=== PATIENT | female | born 1950 | race Caucasian/White ===

== ENCOUNTER 2018-02-25 16:27 | Observation (INO) ==
[2018-02-25 16:56] LABS: Basophils # 0.1 K/mcL (0.0-0.2); Basophils % 0.7 %; Eosinophils # 0.2 K/mcL (0.0-0.6); Hematocrit 41.7 % (35.3-44.9); Hemoglobin 13.8 g/dL (11.5-15.4); Immature Granulocytes % 0.2 % (0-4); Lymphocytes # 4.3 K/mcL (0.6-4.6); Lymphocytes % 35.5 %; Mean Corpuscular HGB Conc 33.1 g/dL (31.6-35.5); Mean Corpuscular Hemoglobin 28.4 pg (28.0-33.3); Mean Corpuscular Volume 85.8 fL (83.0-100.0); Mean Platelet Volume 9.4 fL (9.4-12.4); Monocytes # 1.1 K/mcL (0.0-1.3); Neutrophils # 6.3 K/mcL (1.6-8.9); Platelet Count 368 K/mcL (140-400); Red Blood Count 4.86 M/mcL (3.82-4.97); Red Cell Distribution Width 12.9 % (11.5-14.5); Segmented Neutrophils % 52.6 %
--- NOTE | 2018-02-25 17:00 | Emergency Department Note ---
Disposition Clinical Impression: Vision changes, TIA (transient ischemic attack) Disposition: Admitted As Inpatient Condition: Good General Adult HPI - General Chief complaint: ED Neuro Symptoms/Deficit Stated complaint: "head feels tight, pain down neck,vision changes" Time Seen by Provider: 02/25/18 16:42 Source: patient Limitations: no limitations Nursing Notes Reviewed: Yes Vital Signs Reviewed: Yes - History of Present Illness Pain Scale: 4 - Related Data Home Medications Medication Instructions Recorded Confirmed Cholecalciferol (D-3) [Vitamin D] 2,000 unit PO DAILY 02/25/18 02/25/18 Levothyroxine Sodium [Levoxyl] 75 mcg PO DAILY 02/25/18 02/25/18 Allergies Allergy/AdvReac Type Severity Reaction Status Date / Time Penicillins [PCN] AdvReac Rash Verified 01/19/17 12:14 sulfamethoxazole AdvReac Nausea Verified 01/19/17 12:14 [From Bactrim] trimethoprim [From Bactrim] AdvReac Nausea Verified 01/19/17 12:14 Past Medical History - Past Medical History Medical history: Reports: no medical history Surgical history: Reports: cholecystectomy, hysterectomy, orthopedic, other Psychiatric history: Reports: no psych history PERFORATOR LOADER history: Reports: no PERFORATOR LOADER history - Social History Smoking Status: Never smoker Smokeless Tobacco Status: No Alcohol use: Reports: none Drug use: Reports: none Physical Exam - General Limitations: no limitations General appearance: alert, in no apparent distress Course Vital Signs Temperature 98.0 F 02/25/18 16:29 Pulse Rate 69 02/25/18 16:29 Respiratory Rate 18 02/25/18 16:29 Blood Pressure 155/87 02/25/18 16:29 O2 Sat by Pulse Oximetry 97 02/25/18 16:29 Temperature 98.0 F 02/25/18 16:34 Pulse Rate 69 02/25/18 16:34 Respiratory Rate 18 02/25/18 18:41 Blood Pressure 103/56 02/25/18 18:41 O2 Sat by Pulse Oximetry 97 02/25/18 16:34 Oxygen Delivery Oxygen Delivery Room Air Medical Decision Making - MDM Narrative Medical decision making narrative: This documentation is done with the assistance of Dragon dictation. Despite efforts made to ensure accuracy, there may be inaccuracies in aircraft rigging and controls mechanic or spelling and typographical errors. Patient seen today for blurring of vision some headache and some numbness going down left side of her face and tingling is down to her neck. Symptoms, come and go. She is worried she could be having a TIA. She says she does not really want to be here I prescription for to do a workup on her CT her head and will determine best disposition from then. She is in agreement this plan. She does not meet stroke Head CT 02/25/18 16:43 IMPRESSION: No acute intracranial abnormality. D/ / Kvng Crawford MD / Kvng Crawford MD Interpreting Provider: Kvng Crawford MD 1748 hrs.: Patient's a CT is negative labs look good. We will talk to her about getting an MRI versus admitted to the hospital. However MRI is at least 3 hours behind schedule due to some other emergent MRIs. Soret bringing her into the hospital. She is in agreement with plan. We will start her on aspirin and admit her. She is in agreement with plan. - Lab Data Result diagrams: 02/25/18 16:45 02/25/18 16:45 Lab Results 02/25/18 02/25/18 02/25/18 Range/Units 16:45 16:45 16:45 WBC 12.0 H (4.3-11.1) K/mcL RBC 4.86 (3.82-4.97) M/mcL Hgb 13.8 (11.5-15.4) g/dL Hct 41.7 (35.3-44.9) % MCV 85.8 (83.0-100.0) fL MCH 28.4 (28.0-33.3) pg MCHC 33.1 (31.6-35.5) g/dL RDW 12.9 (11.5-14.5) % Plt Count 368 (140-400) K/mcL MPV 9.4 (9.4-12.4) fL Immature Gran % 0.2 (0-4) % Seg Neutrophils % 52.6 % Lymphocytes % 35.5 % Monocytes % 9.0 % Eosinophils % 2.0 % Basophils % 0.7 % Neutrophils # 6.3 (1.6-8.9) K/mcL Lymphocytes # 4.3 (0.6-4.6) K/mcL Monocytes # 1.1 (0.0-1.3) K/mcL Eosinophils # 0.2 (0.0-0.6) K/mcL Basophils # 0.1 (0.0-0.2) K/mcL PT 10.4 (9.4-12.1) Seconds INR 1.0 APTT 31.5 (26.0-36.0) Seconds Sodium 139 (136-145) mEq/L Potassium 4.0 (3.5-5.1) mEq/L Chloride 105 (98-107) mEq/L Carbon Dioxide 25 (23-29) mEq/L BUN 23 (8-23) mg/dL Creatinine 0.82 (0.60-1.20) mg/dL Est GFR ( Amer) > 60 (> 60) Est GFR (Non-Af Amer) > 60 (> 60) BUN/Creatinine Ratio 28 H (6-26) Glucose 98 (70-105) mg/dL POC Glucose (70-99) mg/dL Calculated Osmolality 292 (280-300) Calcium 10.2 (8.6-10.3) mg/dL Troponin I < 0.03 (< 0.04) ng/mL Urine Color (Yellow) Urine Clarity (Clear) Urine pH (5.0-8.0) pH Units Ur Specific [place] (1.010-1.025) Urine Protein (Neg-Trace) mg/dL Urine Glucose (UA) (Normal) mg/dL Urine Ketones (Negative) mg/dL Urine Blood (Negative) Urine Nitrite (Negative) Urine Bilirubin (Negative) Urine Urobilinogen (Normal) mg/dL Ur Leukocyte Esterase (Negative) Urine Microscopic RBC (0-3) per hpf Urine Microscopic WBC (0-3) per hpf Ur Squamous Epith Cells (None-Few) per lpf Urine Bacteria (None-Few) per hpf Hyaline Casts (None-Few) per lpf Ur Culture Indicated? (NO) 02/25/18 02/25/18 Range/Units 16:58 17:32 WBC (4.3-11.1) K/mcL RBC (3.82-4.97) M/mcL Hgb (11.5-15.4) g/dL Hct (35.3-44.9) % MCV (83.0-100.0) fL MCH (28.0-33.3) pg MCHC (31.6-35.5) g/dL RDW (11.5-14.5) % Plt Count (140-400) K/mcL MPV (9.4-12.4) fL Immature Gran % (0-4) % Seg Neutrophils % % Lymphocytes % % Monocytes % % Eosinophils % % Basophils % % Neutrophils # (1.6-8.9) K/mcL Lymphocytes # (0.6-4.6) K/mcL Monocytes # (0.0-1.3) K/mcL Eosinophils # (0.0-0.6) K/mcL Basophils # (0.0-0.2) K/mcL PT (9.4-12.1) Seconds INR APTT (26.0-36.0) Seconds Sodium (136-145) mEq/L Potassium (3.5-5.1) mEq/L Chloride (98-107) mEq/L Carbon Dioxide (23-29) mEq/L BUN (8-23) mg/dL Creatinine (0.60-1.20) mg/dL Est GFR ( Amer) (> 60) Est GFR (Non-Af Amer) (> 60) BUN/Creatinine Ratio (6-26) Glucose (70-105) mg/dL POC Glucose 110 H (70-99) mg/dL Calculated Osmolality (280-300) Calcium (8.6-10.3) mg/dL Troponin I (< 0.04) ng/mL Urine Color Yellow (Yellow) Urine Clarity Clear (Clear) Urine pH 6.0 (5.0-8.0) pH Units Ur Specific [place] 1.026 H (1.010-1.025) Urine Protein Negative (Neg-Trace) mg/dL Urine Glucose (UA) Normal (Normal) mg/dL Urine Ketones Negative (Negative) mg/dL Urine Blood Negative (Negative) Urine Nitrite Negative (Negative) Urine Bilirubin Negative (Negative) Urine Urobilinogen Normal (Normal) mg/dL Ur Leukocyte Esterase Small H (Negative) Urine Microscopic RBC 0-3 (0-3) per hpf Urine Microscopic WBC 3-5 H (0-3) per hpf Ur Squamous Epith Cells Many H (None-Few) per lpf Urine Bacteria None Seen (None-Few) per hpf Hyaline Casts None Seen (None-Few) per lpf Ur Culture Indicated? NO. A (NO) Attestation Statement - Attestation Attestation: I examined this patient and my medical decision-making was reviewed with the Resident Physician. I agree with the documented findings, disposition and treatment plan as described except to the extent set forth below. Patient seen and evaluated by Dr. Dejesus and myself, grazes evaluation management plan, supervise care the patient's stay.
[2018-02-25 17:02] LABS: Prothrombin Time 10.4 Seconds (9.4-12.1)
[2018-02-25 17:04] LABS: Activated Partial Thrombo Time 31.5 Seconds (26.0-36.0)
[2018-02-25] MEDS ORDERED: Aspirin 325 MG TABLET PO ONE (17:25)
[2018-02-25 17:41] LABS: BUN/Creatinine Ratio 28 (6-26); Blood Urea Nitrogen 23 mg/dL (8-23); Calcium 10.2 mg/dL (8.6-10.3); Carbon Dioxide 25 mEq/L (23-29); Chloride 105 mEq/L (98-107); Glucose 98 mg/dL (70-105); Osmolality,Calculated 292 (280-300); Sodium 139 mEq/L (136-145); Troponin I < 0.03 ng/mL (< 0.04); eGFR For African Americans > 60 (> 60); eGFR For Non-African Americans > 60 (> 60)
[2018-02-25 17:43] LABS: Bilirubin,Urine Negative (Negative); Blood,Urine Negative (Negative); Clarity,Urine Clear (Clear); Color,Urine Yellow (Yellow); Glucose,Urine (UA) Normal (Normal); Ketones,Urine Negative (Negative); Leukocyte Esterase,Urine Small (Negative); Nitrite,Urine Negative (Negative); Protein,Urine Negative (Neg-Trace); Specific Gravity,Urine 1.026 (1.010-1.025); Urobilinogen,Urine Normal (Normal)
[2018-02-25 17:48] LABS: Bacteria,Urine None Seen per hpf (None-Few); Hyaline Casts,Urine None Seen per lpf (None-Few); RBC,Urine 0-3 per hpf (0-3); Squamous Epithelial Cell,Urine Many per lpf (None-Few)
--- NOTE | 2018-02-25 18:05 | Emergency Department Note ---
Disposition Clinical Impression: Vision changes, TIA (transient ischemic attack) Disposition: Admitted As Inpatient Condition: Good Referrals: Rosie Dickerson MD [Primary Care Provider] - Forms: ED Satisfaction Letter Time of Disposition: 18:13 General Adult HPI - General Chief complaint: ED Neuro Symptoms/Deficit Stated complaint: "head feels tight, pain down neck,vision changes" Time Seen by Provider: 02/25/18 16:42 Source: patient Mode of arrival: ambulatory Limitations: no limitations Nursing Notes Reviewed: Yes Vital Signs Reviewed: Yes - History of Present Illness HPI Narrative: Patient presents to the ED with the chief complaint of changes in vision and face discomfort. States it started yesterday, has been intermittent. She reports she did not want to, but her daughter was making her. States that she started having flashers and both of her eyes yesterday and then this gradually progressed to loss of her peripheral vision, but she reports is intermittent. She states that she would get tunnel vision for several seconds to a few minutes and then that would go away. The left side of her face and her neck. Also felt off. She denies any headache, chest pain, shortness breath, fever, abdominal pain, nausea, vomiting, diarrhea. Pain Scale: 4 - Related Data Home Medications Medication Instructions Recorded Confirmed Benadryl 01/19/17 Levothyroxine 01/19/17 Sudafed 01/19/17 Previous Rx's Medication Instructions Recorded Cefdinir [Omnicef] 300 mg PO BID #20 capsule 01/19/17 GuaiFENesin ER [Mucinex] 1,200 mg PO BID #20 tbbp.12hr 01/19/17 Allergies Allergy/AdvReac Type Severity Reaction Status Date / Time Penicillins [PCN] AdvReac Rash Verified 01/19/17 12:14 sulfamethoxazole AdvReac Nausea Verified 01/19/17 12:14 [From Bactrim] trimethoprim [From Bactrim] AdvReac Nausea Verified 01/19/17 12:14 Review of Systems: As reviewed in the HPI. All other systems reviewed are negative or normal. Past Medical History - Past Medical History Attestation: Yes The following information was validated with the patient. Source: patient Medical history: Reports: no medical history Surgical history: Reports: cholecystectomy, hysterectomy, orthopedic, other Psychiatric history: Reports: no psych history REHABILITATION INSPECTOR history: Reports: no REHABILITATION INSPECTOR history - Social History Smoking Status: Never smoker Smokeless Tobacco Status: No Alcohol use: Reports: none Drug use: Reports: none Physical Exam - General Limitations: no limitations General appearance: alert, in no apparent distress - Head Head exam: atraumatic, normocephalic, normal inspection - Eye Eye exam: Present: normal appearance, PERRL, EOMI. Absent: scleral icterus, conjunctival injection - ENT ENT exam: normal exam, normal oropharynx, mucous membranes moist - Neck Neck exam: Present: normal inspection, full ROM, trachea midline - Chest Chest inspection: Present: normal inspection, symmetric chest wall rise - Respiratory Respiratory exam: Present: normal lung sounds bilaterally - Cardiovascular Cardiovascular exam: Present: regular rate, normal rhythm, normal heart sounds - Abdominal Exam Abdominal exam: Present: soft, Non-Tender. Absent: tenderness, distention, guarding, rebound, rigidity - Extremities Exam Extremities exam: Present: normal inspection, full ROM. Absent: tenderness, pedal edema - Back Exam Back exam: Present: normal inspection, full ROM. Absent: tenderness - Neurological Exam Neurological exam: Present: alert, oriented X3, CN II-XII intact, normal gait, other (. Visual esparza intact) - Expanded Neurological Exam Patient oriented to: Present: person, place, time Speech: Present: fluid speech Cranial nerves: EOM function (II, III, IV, ): Normal, facial sensation (V): Normal, facial palsy (VII): Normal, spinal accessory function (XI): Normal, tongue deviation (XII): Normal Cerebellar function: finger to nose: Normal Cerebellar function: normal gait Motor strength - LUE: 5/5 Motor strength - RUE: 5/5 Motor strength - LLE: 5/5 Motor strength - RLE: 5/5 Upper motor neuron exam: cristiano neglect: Absent bilaterally, pronator drift: Absent bilaterally Sensory exam upper extremity: light touch: Normal Sensory exam lower extremity: light touch: Normal Coma Scale Eye Opening: Spontaneous Coma Scale Motor Response: Obeys Commands Coma Scale Verbal Response: Oriented Coma Scale Total: 15 - Psychiatric Psychiatric exam: Present: normal affect, normal mood - Skin Skin exam: Present: warm, dry, intact, normal color Course - Reevaluation(s) Reevaluation #1: Lab work and CT is normal. Did recommend admission for TIA workup. Patient family agreeable. Accepted by hospitalist for admission. Vital Signs Temperature 98.0 F 02/25/18 16:29 Pulse Rate 69 02/25/18 16:29 Respiratory Rate 18 02/25/18 16:29 Blood Pressure 155/87 02/25/18 16:29 O2 Sat by Pulse Oximetry 97 02/25/18 16:29 Temperature 98.0 F 02/25/18 16:34 Pulse Rate 69 02/25/18 16:34 Respiratory Rate 18 02/25/18 16:34 Blood Pressure 155/87 02/25/18 16:34 O2 Sat by Pulse Oximetry 97 02/25/18 16:34 Oxygen Delivery Oxygen Delivery Room Air Medical Decision Making - Medical Records Medical records reviewed: Yes I reviewed the patient's medical records. - Lab Data Lab results reviewed: Yes I reviewed the patient's lab results. Result diagrams: 02/25/18 16:45 02/25/18 16:45 Lab Results 02/25/18 02/25/18 02/25/18 Range/Units 16:45 16:45 16:45 WBC 12.0 H (4.3-11.1) K/mcL RBC 4.86 (3.82-4.97) M/mcL Hgb 13.8 (11.5-15.4) g/dL Hct 41.7 (35.3-44.9) % MCV 85.8 (83.0-100.0) fL MCH 28.4 (28.0-33.3) pg MCHC 33.1 (31.6-35.5) g/dL RDW 12.9 (11.5-14.5) % Plt Count 368 (140-400) K/mcL MPV 9.4 (9.4-12.4) fL Immature Gran % 0.2 (0-4) % Seg Neutrophils % 52.6 % Lymphocytes % 35.5 % Monocytes % 9.0 % Eosinophils % 2.0 % Basophils % 0.7 % Neutrophils # 6.3 (1.6-8.9) K/mcL Lymphocytes # 4.3 (0.6-4.6) K/mcL Monocytes # 1.1 (0.0-1.3) K/mcL Eosinophils # 0.2 (0.0-0.6) K/mcL Basophils # 0.1 (0.0-0.2) K/mcL PT 10.4 (9.4-12.1) Seconds INR 1.0 APTT 31.5 (26.0-36.0) Seconds Sodium 139 (136-145) mEq/L Potassium 4.0 (3.5-5.1) mEq/L Chloride 105 (98-107) mEq/L Carbon Dioxide 25 (23-29) mEq/L BUN 23 (8-23) mg/dL Creatinine 0.82 (0.60-1.20) mg/dL Est GFR ( Amer) > 60 (> 60) Est GFR (Non-Af Amer) > 60 (> 60) BUN/Creatinine Ratio 28 H (6-26) Glucose 98 (70-105) mg/dL POC Glucose (70-99) mg/dL Calculated Osmolality 292 (280-300) Calcium 10.2 (8.6-10.3) mg/dL Troponin I < 0.03 (< 0.04) ng/mL Urine Color (Yellow) Urine Clarity (Clear) Urine pH (5.0-8.0) pH Units Ur Specific [place] (1.010-1.025) Urine Protein (Neg-Trace) mg/dL Urine Glucose (UA) (Normal) mg/dL Urine Ketones (Negative) mg/dL Urine Blood (Negative) Urine Nitrite (Negative) Urine Bilirubin (Negative) Urine Urobilinogen (Normal) mg/dL Ur Leukocyte Esterase (Negative) Urine Microscopic RBC (0-3) per hpf Urine Microscopic WBC (0-3) per hpf Ur Squamous Epith Cells (None-Few) per lpf Urine Bacteria (None-Few) per hpf Hyaline Casts (None-Few) per lpf Ur Culture Indicated? (NO) 02/25/18 02/25/18 Range/Units 16:58 17:32 WBC (4.3-11.1) K/mcL RBC (3.82-4.97) M/mcL Hgb (11.5-15.4) g/dL Hct (35.3-44.9) % MCV (83.0-100.0) fL MCH (28.0-33.3) pg MCHC (31.6-35.5) g/dL RDW (11.5-14.5) % Plt Count (140-400) K/mcL MPV (9.4-12.4) fL Immature Gran % (0-4) % Seg Neutrophils % % Lymphocytes % % Monocytes % % Eosinophils % % Basophils % % Neutrophils # (1.6-8.9) K/mcL Lymphocytes # (0.6-4.6) K/mcL Monocytes # (0.0-1.3) K/mcL Eosinophils # (0.0-0.6) K/mcL Basophils # (0.0-0.2) K/mcL PT (9.4-12.1) Seconds INR APTT (26.0-36.0) Seconds Sodium (136-145) mEq/L Potassium (3.5-5.1) mEq/L Chloride (98-107) mEq/L Carbon Dioxide (23-29) mEq/L BUN (8-23) mg/dL Creatinine (0.60-1.20) mg/dL Est GFR ( Amer) (> 60) Est GFR (Non-Af Amer) (> 60) BUN/Creatinine Ratio (6-26) Glucose (70-105) mg/dL POC Glucose 110 H (70-99) mg/dL Calculated Osmolality (280-300) Calcium (8.6-10.3) mg/dL Troponin I (< 0.04) ng/mL Urine Color Yellow (Yellow) Urine Clarity Clear (Clear) Urine pH 6.0 (5.0-8.0) pH Units Ur Specific [place] 1.026 H (1.010-1.025) Urine Protein Negative (Neg-Trace) mg/dL Urine Glucose (UA) Normal (Normal) mg/dL Urine Ketones Negative (Negative) mg/dL Urine Blood Negative (Negative) Urine Nitrite Negative (Negative) Urine Bilirubin Negative (Negative) Urine Urobilinogen Normal (Normal) mg/dL Ur Leukocyte Esterase Small H (Negative) Urine Microscopic RBC 0-3 (0-3) per hpf Urine Microscopic WBC 3-5 H (0-3) per hpf Ur Squamous Epith Cells Many H (None-Few) per lpf Urine Bacteria None Seen (None-Few) per hpf Hyaline Casts None Seen (None-Few) per lpf Ur Culture Indicated? NO. A (NO) - Radiology Data Radiology results reviewed: Yes I reviewed the patient's radiology results. - EKG Data EKG #1 EKG attestation: Yes I reviewed and interpreted this EKG. EKG results narrative: Sinus rhythm, rate 71, ALEJA 151, QRS 92, QTC 4:30, left axis deviation, no acute ischemic changes
[2018-02-25] MEDS ORDERED: Naloxone 0.4 MG/ML INJ IVP PRN (18:32)
--- NOTE | 2018-02-25 18:38 | Internal Med History&Physical ---
Date of Encounter: 02/25/18 Time of Encounter: 18:36 Internal Medicine - H&P: HPI Chief complaint: Vision changes, pressure-like headache on left side History of present illness: Ms. Gay is a 67 year old female with a history of hypothyroidism who presents with Vision changes, pressure-like headache on left side. 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 Subsequently at about 2 PM, she developed a pressure-like headache on her left head that was described as squeezing with radiation down the left neck. Symptoms resolved on admission. Approximately a month ago she experienced similar transient visual disturbance but was localized to one eye - she was unable to remember the laterality of symptoms. She denies recent history of headaches but has noted that she has been under a plenty of stress recently. She had history of tension headache many many years ago due to teeth grinding that resolved with mouth prosthesis. EKG personally reviewed with rate 71, normal sinus rhythm CT/CT head/brain wo con IMPRESSION: No acute intracranial abnormality. Past Med Surg Social Fam HX - Past Medical History Medical history: no medical history Psychiatric history: no psych history - Past Surgical History Surgical History: cholecystectomy, hysterectomy, orthopedic, other - Social History Smoking Status: Never smoker Smokeless Tobacco Status: No Alcohol use: none Drug use: none Internal Medicine - H&P: Meds Cholecalciferol (D-3) [Vitamin D] 2,000 unit PO DAILY 02/25/18 [History] Levothyroxine Sodium [Levoxyl] 75 mcg PO DAILY 02/25/18 [History] 3 Allergy/AdvReac Type Severity Reaction Status Date / Time Penicillins [PCN] AdvReac Rash Verified 01/19/17 12:14 sulfamethoxazole AdvReac Nausea Verified 01/19/17 12:14 [From Bactrim] trimethoprim [From Bactrim] AdvReac Nausea Verified 01/19/17 12:14 All Systems PM: A 10-system review of systems was performed and is negative for pertinent findings except as documented above in the HPI. Review of systems: ROS 14 point review of systems reviewed as best as possible given presentation. Pertinent positive or negative as per HPI or otherwise reviewed as negative - Constitutional Vitals: Temp Pulse Resp BP Pulse Ox 98.0 F 69 18 155/87 97 02/25/18 16:34 02/25/18 16:34 02/25/18 16:34 02/25/18 16:34 02/25/18 16:34 Exam: General - AAO x 3 Psych - Appropriate affect/speech. No agitation Eyes - DA. Eye lids intact. No scleral icterus Neuro - No gross peripheral or central neuro deficits on inspection Heart - Sinus. RRR. S1 and S2 present. No added HS/murmurs appreciated. No elevated JVD appreciated. Lung - Adequate air entry b/l, No crackles/wheezes appreciated GI - Soft, non-tender. No hepatosplenomegaly/ascites. BS+ - No CVA/suprapubic tenderness or palpable bladder distension Skin - Intact. No rash/petechiae/ecchymosis. Warm extremities Internal Med - H&P Results - Labs CBC & Chem 7: 02/25/18 16:45 02/25/18 16:45 - Assessment and plan (1) TIA (transient ischemic attack) Current Visit: Yes Status: Acute Assessment and plan: dtr concerned about hx of carotid stenosis - ED d/w me about admission for TIA rule out. Will place MRI brain, TTE, tele, carotid doppler, lipid panel 81 ASA for now Qualifiers: Transient cerebral ischemia type: other Qualified Code(s): G45.8 - Other transient cerebral ischemic attacks and related syndromes (2) Hypothyroid Current Visit: Yes Status: Acute Assessment and plan: continue synthroid Qualifiers: Hypothyroidism type: other Qualified Code(s): E03.8 - Other specified hypothyroidism - Time Spent With Patient Total time spent is greater than 50% in coordination of care (as documented) at patient's floor/unit and/or counseling patient:
[2018-02-25] MEDS ORDERED: Ibuprofen 400 MG TABLET PO PRN (23:56)
[2018-02-26 05:02] LABS: Chol/HDL Ratio 4.1 (0-4.9)
[2018-02-26] MEDS ORDERED: Aspirin Enteric Coated 81 MG Tablet PO SCH (09:00)
[2018-02-26] MEDS ORDERED: Cholecalciferol (D-3) 1,000 UNIT TABLET PO SCH (09:00)
[2018-02-26 11:19] VITALS: BP 113/61
--- NOTE | 2018-02-26 15:27 | Discharge Summary ---
- NOTES TO OUTPATIENT PROVIDER Notes to Outpatient Provider: Patient seen and examined for streaky vision changes, dizziness and headache. Symptoms subsided prior to discharge. Workup included CTA To Be Unremarkable for Acute Intracranial Abnormality, MRI of Head and Brain Unremarkable for Acute Intracranial Abnormality, Carotid Dopplers Unremarkable for Decreased Perfusion or stenosis, CT of C-spine revealed anterolisthesis 2 mm on C4-C5. If headache, neck pain and vision changes persist patient should follow up with orthospine. Also, may benefit from ophthalmology visit. Additionally, the patient was started on a low-dose statin due to mixed hyperlipidemia. Please follow-up Date of Encounter: 02/26/18 Time of Encounter: 15:24 - Discharge Diagnosis (1) TIA (transient ischemic attack) Priority: Primary Status: Ruled-out Assessment and Plan: Patient presented with vision changes, headache, neck pain and dizziness. Due to history of carotid stenosis with concern for TIA. MRI brain negative for acute intracranial abnormality, CTA negative for acute intracranial abnormality, carotid Dopplers without acute abnormalities. Occipital neuralgia is in the differential. CT of C-spine patient was noted to have anterior listhesis of C4-C5 at 2 mm No focal neurological deficits, hemodynamically stable. All diagnostic imaging have been unremarkable although for has been unremarkable with the exception of mixed hyperlipidemia. Patient is medically stable for discharge She has been instructed to follow-up with her primary care provider in one to 2 weeks following discharge Should dizziness, pain, headache persist patient may benefit from outpatient orthospine consult Qualifiers: Transient cerebral ischemia type: other Qualified Code(s): G45.8 - Other transient cerebral ischemic attacks and related syndromes (2) Hypothyroid Priority: Secondary Status: Acute Assessment and Plan: continue synthroid upon discharge Qualifiers: Hypothyroidism type: other Qualified Code(s): E03.8 - Other specified hypothyroidism (3) Hyperlipidemia Priority: Secondary Status: Acute Assessment and Plan: Start patient on low-dose statin Follow-up with PCP regarding mixed hyperlipidemia and new statin prescription Potential side effects of statin use has been explained to the patient. No further questions or concern Qualifiers: Hyperlipidemia type: mixed hyperlipidemia Qualified Code(s): E78.2 - Mixed hyperlipidemia (4) Vision changes Priority: Secondary Status: Resolved Assessment and Plan: Resolved Hospital course: Ms. Gay is a 67 year old female Discharge discussed with: patient, family, nurse - Time Spent with Patient Total time spent providing and/or coordinating discharge services: Greater than 30 minutes - Discharge Medications Home Medications: Cholecalciferol (D-3) [Vitamin D] 2,000 unit PO DAILY 02/25/18 [History] Levothyroxine Sodium [Levoxyl] 75 mcg PO DAILY 02/25/18 [History] Atorvastatin [Lipitor] 10 mg PO HS 30 Days #30 tablet 02/26/18 [Rx] Allergies/Adverse Reactions: 3 Allergy/AdvReac Type Severity Reaction Status Date / Time Penicillins [PCN] AdvReac Rash Verified 01/19/17 12:14 sulfamethoxazole AdvReac Nausea Verified 01/19/17 12:14 [From Bactrim] trimethoprim [From Bactrim] AdvReac Nausea Verified 01/19/17 12:14 Date of admission: 02/25/18 18:30 Primary care physician: Rosie Dickerson Discharging clinician: Baldemar Garrison Anticipated date of discharge: 02/26/18 - Constitutional Vitals: Temp Pulse Resp BP Pulse Ox 97.8 F 79 14 113/61 98 02/26/18 11:17 02/26/18 11:17 02/26/18 11:17 02/26/18 11:17 02/26/18 11:17 - Head Head exam: Present: atraumatic, normocephalic - Eye Eye exam: Present: PERRL, conjuntiva pink, sclera anicteric Pupils: Present: PERRL - Neck Neck exam general surgery: Present: supple, trachea midline. Absent: lymphadenopathy - Respiratory Respiratory exam: Present: CTAB. Absent: accessory muscle use, rales, rhonchi, wheezes - Cardiovascular Cardiovascular exam: Present: RRR, +S1, +S2. Absent: diastolic murmur, gallop, rubs, systolic murmur - GI/Abdominal GI/Abdominal exam: Present: normal bowel sounds, soft, no peritoneal signs. Absent: distended, tenderness - Extremities Exam Extremities exam: Present: warm, radial pulses palpable and symmetrical. Absent : calf tenderness, cyanotic, pedal edema - Neurological Exam Neurological exam: Present: CN II-XII intact, oriented X3, no focal deficits. Absent: pronater drift, facial droop, speech deficit - Skin Skin exam: Present: dry, intact - Patient Status Disposition: Home, Self-Care Condition: Good Overall status at discharge: patient is progressing back to baseline - Discharge Instructions Follow Up With: Rosie Dickerson MD [Primary Care Provider] -
--- NOTE | 2018-02-26 16:22 | Electrocardiograph Report ---
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
== END 2018-02-26 16:02 | disposition home or self-care (01) ==
LOC: 3BNU 16:27 → EMEROO 16:27 → 3BNU 19:00
PROVIDERS: ADMIT Internal Medicine Hematology & Oncology; ATTEND Internal Medicine Hematology & Oncology